=== PATIENT | male | born 1960 | race Asian ===

== ENCOUNTER 2018-05-03 04:11 | Emergency (ER) | payer OTHER ==
[~2018-05-03] VITALS: Ht 172.7 cm; Wt 93.0 kg
[2018-05-03 04:26] VITALS: TEMP 97.3
[2018-05-03] MEDS ORDERED: METF500T PO (04:26)
[2018-05-03 05:43] VITALS: BP 142/89
== END 2018-05-03 05:45 | disposition home or self-care (01) ==
LOC: ED 04:11
DX: M19.012 Primary osteoarthritis, left shoulder (principal)
CPT/HCPCS: 96372; 99283; J1885